=== PATIENT | female | born 1980 | race Caucasian/White ===

== ENCOUNTER 2018-04-29 18:36 | Emergency (ER) | payer SELFPAY ==
[~2018-04-29] VITALS: Ht 177.8 cm; Wt 60.0 kg
[2018-04-29 18:48] VITALS: BP 127/75; Ht 177.8 cm; Wt 60.0 kg
[2018-04-29 19:19] LABS: BASOPHILS 0.2 % (0-2); EOSINOPHILS 1.5 % (0-7); HEMATOCRIT 35.2 % (36.0-48.0); HEMOGLOBIN 12.2 g/dL (12-16); IMMATURE GRANULOCYTES 0.5 % (0-5); MCH 32.9 pg (26.0-34.0); MCHC 34.7 g/dL (31.0-37.0); MCV 94.9 fL (80.0-100.0); MEAN PLATELET VOLUME 9.1 fL (7.4-10.4); MONOCYTES 11.8 % (2-11); PLATELET COUNT 265 10x3/uL (130-400); RBC 3.71 10x6/uL (4.00-5.40); RDW 14.6 % (11.5-14.5); WBC 9.2 10x3/uL (4.8-10.8)
[2018-04-29 19:30] LABS: APTT 30.3 SECONDS (22.8-39.4); INR 1.02 (0.85-1.17)
[2018-04-29 19:39] LABS: ALBUMIN 3.4 g/dL (3.4-5.0); ALKALINE PHOSPHATASE 129 U/L (46-116); ALT (SGPT) 80 U/L (10-68); CALC OSMOLALITY 277 mosm/kg (275-300); CALCIUM 8.1 mg/dL (8.5-10.1); CARBON DIOXIDE 20.1 mmol/L (21.0-32.0); CHLORIDE - SERUM 108 mmol/L (98-107); CREATININE - SERUM 0.8 mg/dL (0.6-1.3); GLUCOSE 119 mg/dL (74-106); POTASSIUM - SERUM 3.3 mmol/L (3.5-5.1); PROTEIN - SERUM 7.1 g/dL (6.4-8.2); SODIUM 140 mmol/L (136-145); UREA NITROGEN 8 mg/dL (7-18); eGFR NON AFRICAN AMERICAN 86 mL/min (90-120)
[2018-04-29 19:49] LABS: CKMB 1.1 U/L (0.0-3.6); CREATINE KINASE 39 UL (21-215); MAGNESIUM - SERUM 1.6 mg/dL (1.8-2.4); TROPONIN-I < 0.017 ng/mL (0.000-0.060)
== END 2018-04-29 21:37 | disposition left against medical advice (07) ==
LOC: D.ER 18:36
PROVIDERS: Family Medicine
DX: R07.9 Chest pain, unspecified (principal); R00.0 Tachycardia, unspecified; F17.200 Nicotine dependence, unspecified, uncomplicated